=== PATIENT | female | born 2000 | race Two or more races ===

== ENCOUNTER 2023-04-10 12:01 | Emergency (ER) | payer OTHER, SELFPAY ==
--- NOTE | ~2023-04-10 | US_ITS ---
EXAMINATION: US , LIMITED CLINICAL INFORMATION: 16 weeks with vaginal bleeding COMPARISON: None available. TECHNIQUE: A limited ultrasound was performed to assess viability. FINDINGS: LMP: 12/28/2022 JO estimated by LMP: 10/04/2023 Single fetus is present in cephalic position with a normal heart rate of 156 bpm. Fetus was active during the course of the exam. measurements were not performed. The cervical length is 3.8 cm. The placenta appears normal and is anterior and at the fundus. No evidence of placenta previa. Amniotic fluid volume appears normal with the deepest vertical pocket measuring 2.7 cm. US/US OB limited IMPRESSION: A living fetus is seen. A cause for the vaginal bleeding has not been found.
[2023-04-10 12:21] VITALS: BP 132/90; PULSE 132; RESP 16; TEMP 37.3; O2SAT 98; BMI 21.5
--- NOTE | 2023-04-10 12:27 | ED.GENADULT ---
HPI - General Adult General Chief complaint: Vaginal Bleeding Stated complaint: Spotting 16 Wks Time Seen by Provider: 04/10/23 19:11 Source: patient and family Mode of arrival: ambulatory History of Present Illness HPI narrative: 22-year-old female, gravid at 14.5 weeks, recently moved here from [facility] and then prior to that was living in [place], she reports that she had some brown vaginal discharge this morning was some associated cramping but otherwise denies any current symptoms and states that the bleeding has stopped. Patient reports that she was seen twice for this in the emergency room in [facility]. She denies any underlying medical problems. She has not been taking vitamins daily and has no care. Related Data Previous Rx's Medication Instructions Recorded nitrofurantoin 100 mg PO Q12H 7 days #14 caps 04/10/23 monohydrate/macrocrystals 100 mg capsule (Macrobid) Allergies Allergy/AdvReac Type Severity Reaction Status Date / Time No Known Allergies Allergy Verified 04/10/23 12:23 Review of Systems Review of Systems: Pertinent positives and negatives as stated in HPI [facility] Past Medical History Source: nursing notes reviewed Social History Social History Advance Directives: No Advance Directives Information Provided: No Physical Exam ED Vital Signs: Vital Signs - 24 hr 04/10/23 12:21 04/10/23 18:49 Temperature 99.2 F Pulse Rate 132 H Respiratory Rate 16 18 Blood Pressure 132/90 H 113/73 Pulse Oximetry 98 98 Oxygen Delivery Method Room Air Room Air BMI result Body Mass Index 21.5 VITAL SIGNS: Reviewed. GENERAL: Well developed, well nourished, in no acute distress. HEAD: Normocephalic/atraumatic EYES: PERRLA, EOMI EARS: Ext canals without abnormality, TMs non-bulging and non-erythematous NOSE: Nares patent bilateral OROPHARYNX: no oral lesions noted, posterior pharynx clear and non-erythematous without noted tonsillar enlargement/erythema/exudates NECK: Supple, no adenopathy LUNGS: Normal breath sounds. No adventitious sounds or accessory muscle use. SpO2<98> CARDIOVASCULAR: Regular rate and rhythm without noted murmurs ABDOMEN: Soft, non-tender, non-distended with bowel sounds. MUSCULOSKELETAL: No tenderness, deformities, or effusions noted on gross inspection. EXTREMITIES: No cyanosis, clubbing or edema. SKIN: Inspection of the skin reveals no rashes NEUROLOGIC: Alert and oriented x 4. Strength and sensation to light touch were grossly intact x 4. Course Course Course Narrative: RME: 22 yold female presents for lower abdominal cramping with vaginal bleeding since yesterday. Patient states no trauma. labs and Ultrasound ordered Medical Decision Making Medical Decision Making MDM Narrative: 22-year-old female with history and clinical presentation of 2nd trimester vaginal bleeding and cramping but otherwise no loss of fluid. I reviewed all investigations and in the setting no fevers or chills I interpret the leukocytosis as related, there is no anemia or thrombocytopenia noted. Coagulation studies are within normal limits. Chemistry indices are grossly within normal limits without demonstration of SERGIO her electrolytes/liver enzyme derangements. Beta [id number], with positive urine test. Urinalysis demonstrates evidence of leukocyte esterase and wbc's and will empirically treat with 7 days of Macrobid. Viral testing is negative for influenza/RSV/COVID. Ultrasound demonstrates IUP without obvious demonstration cause allergy for patient reported vaginal bleeding. Amniotic fluid is within normal limits, FHR-156 bpm. Rh O-positive, no indication for RhoGAM injection. There is no evidence of incompetent cervix, patient has no further vaginal bleeding, she did received Tylenol, I also referred her to our staffing branch manager although I do feel she likely needs to be seen elsewhere and she has had no care. She understands that she will need to complete the course of antibiotics as prescribed and her family member will help her pay for the medication. In addition, she understands the importance of daily vitamins. She received strict return precautions regarding vaginal bleeding. Differential Diagnosis Differential Diagnoses: The differential diagnosis associated with the presentation includes Please see the discussion above Admission/Observation Consideration of admission/observation: Escalation of care including admission/observation considered Please see the discussion above Lab Data [facility] Lab Attestation statement: I reviewed the patient's lab results. Please see the discussion above 04/10/23 13:54 04/10/23 13:54 Labs: Lab Results 04/10/23 04/10/23 Range/Units 13:54 14:45 WBC 13.1 H (4.8-10.8) X10*3/uL RBC 4.01 L (4.20-5.50) X10*6/uL Hgb 12.5 (12.0-16.0) g/dl Hct 35.5 L (37.0-47.0) % MCV 88.5 (80.0-98.0) fL MCH 31.2 (27.0-33.0) pg MCHC 35.2 H (31.0-35.0) g/dl RDW 12.4 (11.0-16.0) % Plt Count 296 (160-400) X10*3/uL MPV 10.4 (9.4-12.3) fL Immature Gran % (Auto) 0.8 H (0.0-0.4) % Neut % (Auto) 76.8 H (45-73) % Lymph % (Auto) 12.9 L (20-40) % Clarke % (Auto) 7.8 (2-11) % Eos % (Auto) 1.4 (0-4) % Baso % (Auto) 0.3 (0-2) % Lymph # (Auto) 1.7 (1.2-4.9) X10*3/uL Clarke # (Auto) 1.0 (0.1-1.2) X10*3/uL Eos # (Auto) 0.2 (0.0-0.4) X10*3/uL Baso # (Auto) 0.0 (0.0-0.2) X10*3/uL Abs Immat Gran (auto) 0.10 H (0.00-0.03) X10*3/uL Absolute Neuts (auto) 10.1 H (2.0-8.3) x10*3/uL Absolute Nucleated RBC 0.000 (0.0-0.012) X10*3/uL Nucleated RBC % (auto) 0.0 (0.0-0.2) /100WBC PT 10.7 L (11.1-13.3) SEC INR 0.9 (0.9-1.1) APTT 26.9 (26.0-36.4) SEC Sodium 135 (135-145) mmol/L Potassium 4.0 (3.3-5.1) mmol/L Chloride 107 (96-108) mmol/L Carbon Dioxide 20 L (22-29) mmol/L Anion Gap 12 (12-20) BUN 7 L (9-16) mg/dL Creatinine 0.62 (0.5-1.4) mg/dL Estim Creat Clear Calc 115.7 Estimated GFR > 60 Random Glucose 99 (60-115) mg/dL Calcium 9.4 (8.4-10.2) mg/dL Total Bilirubin 0.2 (0.0-1.0) mg/dL AST 15 (5-31) U/L ALT 8 (0-31) U/L Alkaline Phosphatase 51 (39-117) U/L Total Protein 7.1 (6.5-8.0) g/dL Albumin 3.7 (3.5-5.0) g/dL Beta HCG, Quant 63355 mIU/mL Urine Color Yellow Urine Appearance Clear Urine pH 6.0 (5.0-9.0) Ur Specific Wilcox 1.025 (1.005-1.025) Urine Protein Negative (Neg-Trace) mg/dL Urine Glucose (UA) Negative (Negative) mg/dL Urine Ketones Negative (Negative) mg/dL Urine Blood Negative (Negative) Urine Nitrite Negative (Negative) Ur Leukocyte Esterase Small (1+) H (Negative) Urine RBC 0-2 (0-2) /HPF Urine WBC 11-20 H (0-5) /HPF Ur Squamous Epith Cells 0-2 (0-2) /HPF Urine Bacteria None Seen (None Seen) Hyaline Casts 0-2 (0-2) /LPF Urine Test POSITIVE H (NEGATIVE) Influenza Type A (PCR) NEGATIVE (Negative) Influenza Type B (PCR) NEGATIVE (Negative) RSV RNA Qual (PCR) NEGATIVE (Negative) SARS-CoV-2 RNA (RT-PCR) NEGATIVE (Negative) Blood Type O Positive Radiology Impression Discussion of test interpretation with radiology: I have reviewed the radiologist's reading. Radiologist Impression: Please see the discussion above Critical Care Time Critical Care Time Critical Care Time: Yes Total Critical Care Time: 30 Attestation: I personally attest to this time spent taking care of the patient. Discharge Plan Discharge Clinical Impression: , Vaginal bleeding during Patient Disposition: Home, Self-Care Instructions: at 11 to 14 Weeks (ED) Additional Instructions: 1. Please start taking daily vitamins, discuss this with the pharmacist who will direct you to the aisle that contains this medicine. 2. Complete the entire course of antibiotics. 3. Please call the office of the senior product development scientist located below for referral to longstanding care. Return to the ER for any worsening symptoms. Prescriptions: New nitrofurantoin monohyd/m-cryst [Macrobid] 100 mg capsule 100 mg PO Q12H 7 Days Qty: 14 0RF Rx Instructions: must administer with a meal/food Referrals: Topher Dozier MD [Physician] -
[2023-04-10 14:00] LABS: MANUAL DIFF FLAG NO
[2023-04-10 14:03] LABS: Basophils Percent Auto 0.3 % (0-2); Eosinophils Absolute Auto 0.2 X10*3/uL (0.0-0.4); Eosinophils Percent Auto 1.4 % (0-4); Hematocrit 35.5 % (37.0-47.0); Hemoglobin 12.5 g/dl (12.0-16.0); Imm Gran Pct Auto 0.8 % (0.0-0.4); Lymphocytes Absolute Auto 1.7 X10*3/uL (1.2-4.9); Lymphocytes Percent Auto 12.9 % (20-40); Mean Corpuscular HGB Conc 35.2 g/dl (31.0-35.0); Mean Corpuscular Hemoglobin 31.2 pg (27.0-33.0); Mean Corpuscular Volume 88.5 fL (80.0-98.0); Mean Platelet Volume 10.4 fL (9.4-12.3); Monocytes Percent Auto 7.8 % (2-11); Neutrophils Absolute Auto 10.1 x10*3/uL (2.0-8.3); Neutrophils Percent Auto 76.8 % (45-73); Platelet Count 296 X10*3/uL (160-400); Red Blood Count 4.01 X10*6/uL (4.20-5.50); Red Cell Distribution Width 12.4 % (11.0-16.0); White Blood Count 13.1 X10*3/uL (4.8-10.8)
[2023-04-10 14:16] LABS: INTERNATIONAL NORM RATIO 0.9 (0.9-1.1); Prothrombin Time 10.7 SEC (11.1-13.3)
[2023-04-10 14:18] LABS: Partial Thromboplastin Time 26.9 SEC (26.0-36.4)
[2023-04-10 14:26] LABS: Alanine Aminotransferase 8 U/L (0-31); Albumin Level 3.7 g/dL (3.5-5.0); Alkaline Phosphatase 51 U/L (39-117); Anion Gap 12 (12-20); Aspartate Amino Transferase 15 U/L (5-31); Bilirubin Total 0.2 mg/dL (0.0-1.0); Blood Urea Nitrogen 7 mg/dL (9-16); Calcium 9.4 mg/dL (8.4-10.2); Carbon Dioxide 20 mmol/L (22-29); Chloride 107 mmol/L (96-108); Creatinine Clr Calc Pharmacy 115.7; Estimated Glomerular Filt Rate > 60; Glucose Random 99 mg/dL (60-115); Sodium 135 mmol/L (135-145); Total Protein 7.1 g/dL (6.5-8.0)
[2023-04-10 14:42] LABS: Influenza A PCR NEGATIVE (Negative); Influenza B PCR NEGATIVE (Negative); Resp Syncy Virus RNA Qual PCR NEGATIVE (Negative); SARS COV2 PCR INHOUSE NEGATIVE (Negative)
[2023-04-10 15:03] LABS: Appearance Urine Clear; Color Urine Yellow; Glucose Urine UA Negative (Negative); Leukocyte Esterase Urine Small (1+) (Negative); Nitrite Urine Negative (Negative); Specific Gravity - Urine 1.025 (1.005-1.025); UMIC TRIGGER UACC YES; Urine Blood Negative (Negative); Urine Ketones Negative (Negative); Urine Protein Negative (Neg-Trace)
[2023-04-10 15:05] LABS: UPreg QC Valid YES; Urine Pregnancy POSITIVE (NEGATIVE)
[2023-04-10 15:06] LABS: Bacteria Urine None Seen (None Seen); Hyaline Casts Urine 0-2 /LPF (0-2); RBC Urine 0-2 /HPF (0-2); Squamous Epithelial Cell Urine 0-2 /HPF (0-2); UACC Culture Trigger YES
[2023-04-10 18:49] VITALS: BP 113/73; RESP 18; O2SAT 98
[2023-04-10] MEDS: Nitrofurantoin Monohyd/M-Cryst 100 MG CAPSULE PO (19:57)
[2023-04-10] MEDS: Acetaminophen 325 MG TABLET 975 MG PO (19:57)
== END 2023-04-10 20:12 | disposition home or self-care (01) ==
PROVIDERS: Physician Assistant; Physician Assistant Medical; Emergency Provider Student in an Organized Health Care Education/Training Program
DX: O20.9 Hemorrhage in early pregnancy, unspecified (principal); Z3A.16 16 weeks gestation of pregnancy; Z20.822 Contact with and (suspected) exposure to COVID-19; Z20.828 Contact with and (suspected) exposure to other viral communicable diseases; Z79.899 Other long term (current) drug therapy
CPT/HCPCS: 0241U; 36415; 76815; 80053; 81001; 81003; 81025; 84702; 85025; 85610; 85730; 86900; 86901; 87086; 87147; 99284

== ENCOUNTER 2023-04-24 10:10 | Outpatient (REF) | payer MEDICAID, SELFPAY | END 2023-04-24 10:11 | disposition home or self-care (01) | LOC: HO.LAB 10:10 | PROVIDERS: Visit Provider Advanced Practice Midwife | DX: O20.9 Hemorrhage in early pregnancy, unspecified (principal); O09.32 Supervision of pregnancy with insufficient antenatal care, second trimester; Z3A.16 16 weeks gestation of pregnancy | CPT/HCPCS: 99212 ==

== ENCOUNTER 2023-04-24 10:10 | Outpatient (AMB) | payer MEDICAID, SELFPAY ==
[2023-04-24 10:21] VITALS: BMI 21.4
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
== END 2023-04-24 15:05 | disposition home or self-care (01) ==
LOC: HO.HWS 10:10
PROVIDERS: Visit Provider Advanced Practice Midwife
DX: J45.909 Unspecified asthma, uncomplicated (principal)
CPT/HCPCS: 25942

== ENCOUNTER 2023-04-24 11:00 | Outpatient (AMB) | payer MEDICAID, SELFPAY ==
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
== END 2023-04-24 11:33 | disposition home or self-care (01) ==
LOC: HO.HWS 11:00
PROVIDERS: Visit Provider Advanced Practice Midwife
DX: O46.92 Antepartum hemorrhage, unspecified, second trimester (principal)
CPT/HCPCS: 99214

== ENCOUNTER 2023-04-24 11:22 | Outpatient (REF) | payer MEDICAID, SELFPAY ==
[2023-04-25 09:08] LABS: BV Int Neg Control Negative (Negative); BV Int Pos Control Positive (Positive)
== END 2023-04-24 11:23 | disposition home or self-care (01) ==
LOC: HO.LNP 11:22
PROVIDERS: Visit Provider Advanced Practice Midwife
DX: O20.9 Hemorrhage in early pregnancy, unspecified (principal); Z3A.16 16 weeks gestation of pregnancy
CPT/HCPCS: 0353U; 87480; 87510; 87660; 99212

== ENCOUNTER 2023-05-03 13:45 | Outpatient (AMB) | payer MEDICAID, SELFPAY ==
[2023-05-03 13:48] VITALS: BP 112/66; BMI 22.8
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
== END 2023-05-03 15:09 | disposition home or self-care (01) ==
LOC: HO.HWSM 13:45
PROVIDERS: Visit Provider Advanced Practice Midwife
DX: O46.92 Antepartum hemorrhage, unspecified, second trimester (principal)
CPT/HCPCS: 25942

== ENCOUNTER → 2023-05-03 13:45 | Outpatient (BNVA) | payer MEDICAID, SELFPAY | PROVIDERS: Visit Provider Advanced Practice Midwife | DX: O20.8 Other hemorrhage in early pregnancy (principal); O98.312 Other infections with a predominantly sexual mode of transmission complicating pregnancy, second trimester; A59.9 Trichomoniasis, unspecified; Z3A.18 18 weeks gestation of pregnancy | CPT/HCPCS: 99212 ==

== ENCOUNTER 2023-05-07 10:11 | Outpatient (REF) | payer MEDICAID, SELFPAY ==
[2023-05-07 10:56] LABS: Hematocrit 32.9 % (37.0-47.0); Hemoglobin 11.1 g/dl (12.0-16.0); Mean Corpuscular HGB Conc 33.7 g/dl (31.0-35.0); Mean Corpuscular Hemoglobin 30.7 pg (27.0-33.0); Mean Corpuscular Volume 91.1 fL (80.0-98.0); Mean Platelet Volume 10.3 fL (9.4-12.3); Platelet Count 308 X10*3/uL (160-400); Red Blood Count 3.61 X10*6/uL (4.20-5.50); Red Cell Distribution Width 12.9 % (11.0-16.0); White Blood Count 14.7 X10*3/uL (4.8-10.8)
[2023-05-07 11:43] LABS: Syphilis Screen Nonreactive (Nonreactive)
[2023-05-07 11:44] LABS: HBsAGNum1 0.33 S/CO (0.00-0.99); HIV AB/AG Nonreactive (Nonreactive); HIV Num 1 0.05 S/CO (0.00-0.99); Hepatitis B Surface Antigen Negative (Negative); ~HepC Num1 0.66 S/CO (0.00-0.79); ~Hepatitis C Antibody Nonreactive (Nonreactive)
[2023-05-07 13:02] LABS: Amphetamine Screen Urine Not Detected (Not Detect); Barbiturates, Urine Not Detected (Not Detect); Benzodiazepines Screen Urine Not Detected (Not Detect); Cannabinoid Screen Urine Not Detected (Not Detect); Cocaine Screen Urine Not Detected (Not Detect); Fentanyl, urine Not Detected (Not Detect); Opiate Screen Urine Not Detected (Not Detect); Phencyclidine Screen Urine Not Detected (Not Detect)
[2023-05-08 09:30] LABS: Rubella IgG Antibody 1.12 Index
[2023-05-16 18:58] LABS: CF Ethnicity NG; Cystic Fibrosis NEGATIVE (NEGATIVE)
== END 2023-05-07 10:12 | disposition home or self-care (01) ==
LOC: HO.LAB 10:11
PROVIDERS: Advanced Practice Midwife; Visit Provider Advanced Practice Midwife
DX: O46.92 Antepartum hemorrhage, unspecified, second trimester (principal)
CPT/HCPCS: 36415; 80307; 81220; 81511; 85027; 86762; 86780; 86787; 86803; 86850; 86900; 87086; 87147; 87340; 87389

== ENCOUNTER 2023-05-28 11:14 | Outpatient (REF) | payer MEDICAID, SELFPAY ==
[2023-05-29 13:40] LABS: BV Int Neg Control Negative (Negative); BV Int Pos Control Positive (Positive)
== END 2023-05-28 11:15 | disposition home or self-care (01) ==
LOC: HO.LAB 11:14
PROVIDERS: Visit Provider Advanced Practice Midwife
DX: O41.8X20 Other specified disorders of amniotic fluid and membranes, second trimester, not applicable or unspecified (principal); Z3A.21 21 weeks gestation of pregnancy; Z67.40 Type O blood, Rh positive
CPT/HCPCS: 81003; 87480; 87510; 87660; 99212

== ENCOUNTER 2023-05-28 11:14 | Outpatient (AMB) | payer MEDICAID, SELFPAY ==
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
[2023-05-28 11:20] VITALS: BP 114/70; BMI 24.1
== END 2023-05-28 12:03 | disposition home or self-care (01) ==
LOC: HO.HWS 11:14
PROVIDERS: Visit Provider Advanced Practice Midwife
DX: O46.92 Antepartum hemorrhage, unspecified, second trimester (principal); Z34.90 Encounter for supervision of normal pregnancy, unspecified, unspecified trimester
CPT/HCPCS: 25942; 99213